=== PATIENT | male | born 1960 | race Hispanic/Latino ===

== ENCOUNTER 2021-01-18 13:08 | Emergency (ER) | payer MEDICARE ==
[~2021-01-18] VITALS: Ht 165.1 cm; Wt 105.2 kg
[~2021-01-18 13:08] MED LIST: ASPIRIN81 M1 PO; GLYBURIDE-METF1 EAC1 PO; LISINOPRIL40 MG PO; METOPROLOL TAR100 MG PO; NAPROXEN500 MG PO; NIFEDICAL XL60 MG PO; TIZANIDINE HCL4 M1 PO
== END 2021-01-18 13:50 | disposition home or self-care (01) ==
LOC: ER 13:45
DX: I10 Essential (primary) hypertension (principal)
CPT/HCPCS: 93005; 99282